=== PATIENT | male | born 1960 | race Two or more races ===

== ENCOUNTER 2018-10-01 06:47 | Emergency (ER) | payer OTHER ==
[2018-10-01 07:26] VITALS: TEMP 98.5; BMI 26.6
[2018-10-01] MEDS ORDERED: MECLIZINE HCL 12.5 MG TABLET PO ONE (09:04)
--- NOTE | 2018-10-01 09:04 | PDOC ---
History of Present Illness - General Chief Complaint: Lightheaded Stated Complaint: DIZZINESS Time Seen by Provider: 10/01/18 07:33 - History of Present Illness Initial Comments: HPI: 58 y/o male presenting to [facility] ER complaining of sudden onset of dizziness with room spinning and nausea/vomiting. 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 Describes a room spinning sensation that became intense to the point where he was unable to drive. Symptoms have improved without intervention. Now rates the dizziness as a 2/10 without further emesis. Denies change with position or head turning. Denies headache or change in vision. 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 Endorses a h/o of similar symptoms approx. 6 months ago, which was attributed to a left sided ear infection. Was prescribed an unknown medication by his PCP, but has not used the prescription in several months. Pt is Kiswahili speaking only. Requested his son at beside provide interpretation. Medical Hx: - Pt denies PHM. Denies taking prescription medications. Review of Systems: In addition to that documented in the HPI above, the additional ROS was obtained : Constitutional: Denies fevers or chills Head: Denies vision changes or headache ENMT: Denies sore throat CV: Denies chest pain Resp: Denies SOB GI: Endorses vomiting. Meka diarrhea : Denies painful urination or increased urinary frequency MSK: Denies recent trauma or falls Skin: Denies new rashes Neuro: Denies new numbness or tingling or weakness Endocrine: Denies polyuria Heme: Denies bleeding or bruising Physical Examination: Constitutional: Well-developed, well-nourished adult male in no acute distress or obvious discomfort. Found semi-fowlers on hospital bed. Alert and oriented x4. Answered all questions appropriately and completely. Speech was non-labored , non-pressured. Head: Normocephalic. No obvious external signs of trauma. Eyes: Pupils 4mm and PERRL bilaterally. EOMI. No vertical or horizontal nystagmus. Sclerae white. Conjunctiva moist and not injected. Ears: External auditory canals and tympanic membranes pearly [place]. Hearing grossly intact. No mastoid tenderness. Nose: No nasal discharge. Throat: Oral cavity and pharynx normal. No inflammation, swelling, exudate, or lesions. Teeth and gingiva in good general condition. Neck: Supple, trachea is midline. Cardiovascular / Chest: Regular rate and regular rhythm. No murmur, rubs, clicks , or gallops. Peripheral pulses: radial pulses full. Respiratory: Breathing unlabored. Equal chest rise and fall. Clear to auscultation bilaterally. No stridor, no wheezing, no rhonchi. Neuro: Alert and oriented. Moving all four extremities spontaneously. No focal deficits. Cranial nerves intact. Sensation to all four extremities intact. Proximal and distal strength 5/5. [employer] strength 5/5 - equal and symmetric. Plantar flexion and dorsiflexion 5/5. No nuchal rigidity. Intact rapid alternating movements and heel to cast. Gait normal. Skin: Warm, dry, and intact. Psych: Affect: appropriate. Mood: normal. Past History - Past Medical History Allergies/Adverse Reactions: Allergies Allergy/AdvReac Type Severity Reaction Status Date / Time No Known Allergies Allergy Verified 10/01/18 07:24 Home Medications: Ambulatory Orders Unobtainable 10/01/18 COPD: No Other medical history: vertigo - Suicide/Smoking/Psychosocial Hx Smoking History: Never smoked *Physical Exam - Vital Signs Last Vital Signs Temp Pulse Resp BP Pulse Ox 98.5 F 82 20 124/82 100 10/01/18 07:12 10/01/18 07:12 10/01/18 07:12 10/01/18 07:12 10/01/18 07:12 ED Treatment Course - LABORATORY CBC & Chemistry Diagram: 10/01/18 10:41 10/01/18 10:41 *DC/Admit/Observation/Transfer Diagnosis at time of Disposition: Dizziness Nausea & vomiting Qualifiers: Vomiting type: unspecified Vomiting Intractability: non-intractable Qualified Code(s): R11.2 - Nausea with vomiting, unspecified - Discharge Dispostion Disposition: HOME Condition at time of disposition: Improved Decision to Admit order: No - Referrals Referrals: Murtaza Champion MD [Primary Care Provider] - Alen Tena MD [Staff Physician] - - Patient Instructions Printed Discharge Instructions: DI for Vertigo Additional Instructions: Hoy te vieron por mareos y vmitos. Tu trabajo de laboratorio y EKG horacio normales hoy. Damaris sntomas mejoraron despus de recibir un medicamento llamado Meclizine. Es probable que tenga claudia condicin llamada vrtigo. He enviado claudia receta para Meclizine a hernandez farmacia. Sandra binh se indica en el prospecto. No exceda la dosis recomendada. Debe hacer un seguimiento con un neurlogo dentro de la prxima semana. He colocado claudia referencia para que usted shira al Dr. Tena. Tendr que llamar para hacer claudia sue. El nmero est incluido en lou paquete. Claudia copia de los resultados de hoy se adjunta a lou paquete. Llvelo a la sue para que hernandez mdico pueda revisarlos. [place] puede hacer un seguimiento con hernandez mdico de atencin primaria. Vaya al departamento de emergencias ms cercano si hernandez afeccin empeora o si vivi que necesita claudia evaluacin de emergencia adicional. You were seen today for dizziness and vomiting. Your lab work and EKG were normal today. Your symptoms got better after receiving a medication called Meclizine. You likely have a condition called Vertigo. I have sent a prescription for Meclizine to your pharmacy. Take as directed on the package insert. Do not exceed the recommended dosage. You should follow up with a neurologist within the next week. I have placed a referral for you to see Dr. Tena. You will need to call to make an appointment. The number is included in this packet. A copy of todays results are attached to this packet. Take it to the appointment so your doctor can review them. You can also follow up with your primary care doctor. Go to the nearest emergency department if your condition worsens or you feel like you need additional emergency evaluation. Print Language: YI - Post Discharge Activity
--- NOTE | 2018-10-01 09:54 | EKG ---
Test Reason : Blood Pressure : / mmHG Vent. Rate : 053 BPM Atrial Rate : 053 BPM P-R Int : 204 ms QRS Dur : 090 ms QT Int : 436 ms P-R-T Axes : 058 -77 030 degrees QTc Int : 409 ms SINUS BRADYCARDIA LEFT ANTERIOR FASCICULAR BLOCK ABNORMAL ECG NO PREVIOUS ECGS AVAILABLE Confirmed by MERISSA OTERO, YAN ([id number]) on 10/01/2018 9:53:48 AM Referred By: Confirmed By:YAN CRAVEN MD
[2018-10-01] MEDS ORDERED: MECLIZINE HCL 25 MG TABLET (FP) PO ONE (10:00)
--- NOTE | 2018-10-01 10:04 | PDOC ---
Attending Attestation - Resident Resident Name: Yassine Thomson - ED Attending Attestation I have performed the following: I have examined & evaluated the patient, The case was reviewed & discussed with the resident, I agree w/resident's findings & plan, Exceptions are as noted - HPI HPI: 58 yo M no PMH presents after episode of severe dizziness causing nausea and vomiting. He states he had similar symptoms in the past that were associated with an ear infection. Denies any recent fever, ear pain, illness. Denies cp, SOB, abdominal pain. He states his symptoms have resolved, feeling much better now. Tolerating PO. - Physicial Exam PE: GENERAL: Awake, alert, and fully oriented, in no acute distress HEAD: No signs of trauma EYES: PERRLA, EOMI, sclera anicteric, conjunctiva clear ENT: Auricles normal inspection, hearing grossly normal, nares patent, oropharynx clear without exudates. Moist mucosa NECK: Normal ROM, supple, no lymphadenopathy, JVD, or masses LUNGS: Breath sounds equal, clear to auscultation bilaterally. No wheezes, and no crackles HEART: Regular rate and rhythm, normal S1 and S2, no murmurs, rubs or gallops ABDOMEN: Soft, nontender, normoactive bowel sounds. No guarding, no rebound. No masses EXTREMITIES: Normal range of motion, no edema. No clubbing or cyanosis. No cords, erythema, or tenderness NEUROLOGICAL: Cranial nerves II through XII grossly intact. Normal speech, normal gait. Motor and sensation intact SKIN: Warm, dry, normal turgor, no rashes or lesions noted. - Medical Decision Making Pt presents with episode of vertigo, now resolved. Exam wnl, patient otherwise well. Low risk for ACS. No signs of CVA. Neurologic exam wnl. Will check one set of basic labs and trop, if neg, will DC home. Heart Score/ECG Review - ECG Impressions Comment:: EKG read 09:12- Sinus beck 54 bpm, +LAFB. No acute ST/T changes.
[2018-10-01] MEDS ORDERED: MECLIZINE HCL 25 MG TABLET (FP) ONE (10:16)
[2018-10-01 11:15] LABS: BASO % 0.3 % (0-2.0); EOS % 0.2 % (0-4.5); HEMATOCRIT 47.5 % (35.4-49); LYMPH % 11.7 % (8-40); MCH 30.6 pg (25.7-33.7); MCHC 33.7 g/dl (32.0-35.9); MEAN CELL VOLUME 90.9 fl (80-96); MONO % 3.2 % (3.8-10.2); NEUT % 84.6 % (42.8-82.8); PLATELET COUNT 149 K/MM3 (134-434); RBC 5.22 M/mm3 (4.00-5.60); RDW 12.6 % (11.9-15.9); WHITE BLOOD COUNT 10.2 K/mm3 (4.0-10.0)
[2018-10-01 11:26] LABS: ALBUMIN 4.2 g/dl (3.4-5.0); ALK PHOS 86 U/L (45-117); ANION GAP 2 MMOL/L (8-16); BILIRUBIN,TOTAL 1.2 mg/dL (0.2-1); CALCIUM 9.1 mg/dL (8.5-10.1); CHLORIDE 110 mmol/L (98-107); CO2 28 mmol/L (21-32); CREATININE 1.2 mg/dL (0.55-1.3); GLUCOSE,RANDOM 126 mg/dL (74-106); POTASSIUM 4.6 mmol/L (3.5-5.1); SGOT/AST 30 U/L (15-37); SGPT/ALT 40 U/L (13-61); SODIUM 140 mmol/L (136-145); TOT PROT 7.8 g/dl (6.4-8.2)
[2018-10-01 13:06] VITALS: BP 114/78; PULSE 59
--- NOTE | 2018-10-03 10:32 | EKG ---
Test Reason : Blood Pressure : / mmHG Vent. Rate : 054 BPM Atrial Rate : 054 BPM P-R Int : 194 ms QRS Dur : 090 ms QT Int : 422 ms P-R-T Axes : 062 -79 023 degrees QTc Int : 400 ms POOR DATA QUALITY, INTERPRETATION MAY BE ADVERSELY AFFECTED SINUS BRADYCARDIA LEFT ANTERIOR FASCICULAR BLOCK ABNORMAL ECG WHEN COMPARED WITH ECG OF 01-OCT-2018 07:23, NO SIGNIFICANT CHANGE WAS FOUND Confirmed by JOE SIMS MD ([id number]) on 10/03/2018 10:32:17 AM Referred By: Confirmed By:JOE SIMS MD
== END 2018-10-01 12:45 | disposition home or self-care (01) ==
LOC: JER 06:47
DX: R42 Dizziness and giddiness (principal)
CPT/HCPCS: 36415; 80053; 84484; 85025; 93005; 93010; 99282-25